=== PATIENT | female | born 1990 | race Caucasian/White ===

== ENCOUNTER 2019-12-15 19:39 | Emergency (ER) | payer BC, SELFPAY ==
[2019-12-15 19:51] VITALS: BP 126/83; PULSE 70; RESP 20; TEMP 36.8; O2SAT 100
--- NOTE | 2019-12-15 20:12 | ED.GENADULT ---
HPI - General Adult General Chief complaint: Dental/Oral Stated complaint: tooth pain Time Seen by Provider: 12/15/19 20:12 Source: patient and RN notes reviewed Mode of arrival: ambulatory Limitations: no limitations History of Present Illness HPI narrative: 29-year-old female presents with complaints of RT lower jaw dental pain for 2 days. Aleve without relief. Jaret says pain shoots up from her right lower jaw into her RT ear causing numbess at time. She visited her dentist today that informed her nothing was wrong dental [place]. Denies any drainage. No fever or chills. No jaw swelling. No neck swelling. No limitation with speaking or swallowing. Has history of dental caries. No dental trauma. No oral lesions. Exacerbating factors consist of chewing on RT side, eating and drinking cold items. Relieving factors nothing per Jaret. No dentures or bridges. Tolerating liquids well. Jaret denies being , unknown LPM due to IUD being in place. Some parts of this dictation were generated by voice recognition software and may contain typographical and/or grammatical inaccuracies. Related Data Allergies Allergy/AdvReac Type Severity Reaction Status Date / Time No Known Allergies Allergy Verified 12/15/19 19:43 Review of Systems Review of Systems: Narrative: CONSTITUTIONAL: Denies fever, chills, sweats. EYES: Denies visual changes, redness, discharge. ENT: Denies rhinorrhea, congestion, sore throat, otalgia. Complains of RT lower dental pain. CARDIOVASCULAR: Denies chest pain, palpitations, edema. RESPIRATORY: Denies dyspnea, wheezing, cough. GASTROINTESTINAL: Denies abdominal pain, nausea, vomiting, diarrhea. GENITOURINARY: Denies dysuria, hematuria, abnormal discharge. SKIN: Denies rash or itching. MUSCULOSKELETAL: Denies acute back pain, joint pain, or myalgia. NEUROLOGIC: Denies numbness or focal weakness. PSYCHIATRIC: Denies anxiety or depression. All systems reviewed & are unremarkable except as noted in HPI and below PMFSH Past Medical History Medical History (Updated 12/18/19 @ 19:25 by JEANINE Thomas) delivery delivered No significant active problems Surgical History Surgical History (Updated 12/18/19 @ 19:25 by JEANINE Thomas) H/O LEEP Family History Family History Other Acute myocardial infarction Diabetes mellitus Family history of dementia Social History Social History Smoking status: Never smoker Second hand tobacco smoke exposure: No Alcohol intake: current Gender identity (if verbalized by the patient): Female Comments At time of signature, agree with nurse past medical, surgical, social, and family history. There is no relevant family history pertinent to the presenting complaint. Exam Narrative: Exam Narrative: GENERAL: This is a well-nourished, well-developed patient, in no apparent distress. Talks in full sentences ans ambulates with steady gait without dyspnea. HEAD: normocephalic, atraumatic. EYES: PERRL. Sclera clear/white. Vision is grossly intact. EARS: External ears normal, auditory canals clear and without drainage, TMs normal without perforation. Hearing grossly intact. NOSE: External nose normal with no obvious nasal discharge, nares without redness, no rhinorrhea. MOUTH: Mild RT lower jaw tednerness with deep palpation. No facial swelling, erythema, or ecchymosis. No trismus. Able to open mouth fully. No neck swelling or Fortunato angina. No abscess to be drained. THROAT: Mucous membranes moist, posterior pharynx clear. NECK: Neck supple, non-tender without lymphadenopathy, masses or thyromegaly. CARDIOVASCULAR: Regular rate and rhythm without murmurs, gallops, or rubs. RESPIRATORY: Clear to auscultation. Breath sounds equal bilaterally. No wheezes, rales, or rhonchi. SKIN: warm, intact with no suspicious lesions or rash, go
== END 2019-12-15 20:26 | disposition home or self-care (01) ==
PROVIDERS: Emergency Provider Nurse Practitioner Family; PCP Family Medicine
DX: K08.89 Other specified disorders of teeth and supporting structures (principal)
CPT/HCPCS: 99213; G0463

== ENCOUNTER 2020-01-16 18:44 | Emergency (ER) | payer BC, SELFPAY ==
[2020-01-16 18:51] VITALS: BP 147/83; PULSE 82; RESP 16; TEMP 36.9; O2SAT 100
--- NOTE | 2020-01-16 19:47 | ED.GENADULT ---
HPI - General Adult General Chief complaint: Unspecified Stated complaint: hemorroid Time Seen by Provider: 01/16/20 19:00 Source: patient Mode of arrival: ambulatory Limitations: no limitations History of Present Illness HPI narrative: Patient is a 29-year-old female who presents to emergency department for evaluation of hemorrhoid for the last several days that is oozing blood is a moderate aching pain with similar occurrence in the past has been attempting sits baths and [id number] medications with minimal improvement patient does note history of constipation Related Data Allergies Allergy/AdvReac Type Severity Reaction Status Date / Time No Known Allergies Allergy Verified 01/16/20 18:58 Review of Systems Review of Systems: Narrative: CONSTITUTIONAL: Denies fever, chills GASTROINTESTINAL: Positive for constipation GENITOURINARY: Denies dysuria or hematuria. SKIN: Positive for hemorrhoid PMFSH Past Medical History Medical History delivery delivered No significant active problems Surgical History Surgical History H/O LEEP Social History Social History Smoking status: Never smoker Second hand tobacco smoke exposure: No Alcohol intake: current Gender identity (if verbalized by the patient): Female Exam Narrative: Exam Narrative: GENERAL: Well-appearing, well-nourished, and in no acute distress. HEAD: Normocephalic, atraumatic. EYES: PERRLA and EOMI. ENT: Nares clear, no rhinorrhea or epistaxis. Mucous membranes moist. Oropharynx without tonsillar hypertrophy exudate or other lesions. SKIN: Warm, dry, no rash. Patient with hemorrhoid that is nonthrombosed and oozing blood when manually expressed NEURO: No focal deficits. Alert and oriented x3. PSYCH: Normal mood and affect. Course Course Emergency Course: Patient in the room in no distress aware of case findings treatment plan and diagnosis agreeing to follow-up as directed or to return if symptoms worsen or concerns Vital Signs Vital signs: Vital Signs Temperature 98.5 F 01/16/20 18:51 Pulse Rate 82 01/16/20 18:51 Respiratory Rate 16 01/16/20 18:51 Blood Pressure 147/83 H 01/16/20 18:51 Pulse Oximetry 100 01/16/20 18:51 Temperature 98.5 F 01/16/20 18:51 Pulse Rate 82 01/16/20 18:51 Respiratory Rate 16 01/16/20 18:51 Blood Pressure 147/83 H 01/16/20 18:51 Pulse Oximetry 100 01/16/20 18:51 Medical Decision Making MDM Narrative Medical decision making narrative: Patient in the room in no distress referred to GI will be managed with medications and sits baths Vital Signs Vital Signs: Vital Signs Temperature 98.5 F 01/16/20 18:51 Pulse Rate 82 01/16/20 18:51 Respiratory Rate 16 01/16/20 18:51 Blood Pressure 147/83 H 01/16/20 18:51 Pulse Oximetry 100 01/16/20 18:51 Temperature 98.5 F 01/16/20 18:51 Pulse Rate 82 01/16/20 18:51 Respiratory Rate 16 01/16/20 18:51 Blood Pressure 147/83 H 01/16/20 18:51 Pulse Oximetry 100 01/16/20 18:51 Discharge Plan Discharge Clinical Impression: Hemorrhoid Patient Disposition: Home, Self-Care Condition: Stable Instructions: Antibiotic Form, Hemorrhoids (DC) Additional Instructions: Follow-up with gastroenterology in the next 7 days for reevaluation Return if symptoms worsen or concerns or any increase in redness swelling pain or fever over 100.5 Follow patient education sheets get them right medial Sits baths for 15 to 30 minutes at least 4 times daily Prescriptions: New hydrocortisone [Anusol-HC] 2.5 % cream with perineal applicator 1 applic RECTAL TID PRN (Reason: hemorrhoids) Qty: 28 RF: 0 Follow-up/Referrals: Lyubov Myers MD [Primary Care Provider] - Irving Claudio MD [Physician] - Stand Alone Forms: Work/School
== END 2020-01-16 20:07 | disposition home or self-care (01) ==
PROVIDERS: Emergency Provider Emergency Medicine; PCP Family Medicine
DX: K64.9 Unspecified hemorrhoids (principal)
CPT/HCPCS: 99283